=== PATIENT | female | born 1960 | race Caucasian/White ===

== ENCOUNTER 2022-12-03 16:31 | Inpatient (IN) | payer BC, SELFPAY ==
--- NOTE | 2022-12-03 | ECG_ITS ---
Test Reason : sob Blood Pressure : / mmHG Vent. Rate : 075 BPM Atrial Rate : 075 BPM P-R Int : 160 ms QRS Dur : 074 ms QT Int : 402 ms P-R-T Axes : 053 073 049 degrees QTc Int : 448 ms Normal sinus rhythm Normal ECG No previous ECGs available Referred By: Valerie García Electronically Signed By:RADHA FIGUEROA
[2022-12-03 17:06] VITALS: BP 175/87; PULSE 85; RESP 18; TEMP 36.4; O2SAT 99; BMI 23.2
--- NOTE | 2022-12-03 17:09 | PC.NURSE ---
Patient arrived from home with complaints of debilitating anxiety that prevents her from being able to function the way she would like to. Reports at the start of the summer she [place] a fall [place] [employer] and has not been the same since. has seen a neurologist and seizures were ruled out. had an MRI on Sun with no findings other than arthritis. Reports being lonely and does not want to be a burden on her children. Has had a difficult time finding a therapist, and when she did the drive to [place] gave her too much anxiety. has been prescribed meds to help with her anxiety but that they were not right for her so she never took them. 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 Reports tried to go back to work but was too fatigued and had to be driven home. Patient visibly anxious and tearful . Denies HI, when asked about SI patient stating not really, but i have thought a lot about how I do not want to continue to live like this . Changed into hospital attire, and belongings locked in pod locker
--- NOTE | 2022-12-03 17:25 | PC.NURSE ---
Per patients request the following can be updated on her care if they call: daughter sarwat- [phone] Gaetano [phone] Jimmy Sam- [phone] Mom Génesis [phone]
--- NOTE | 2022-12-03 17:48 | ED.PSYCH ---
HPI - Psych General Chief Complaint: Psychiatric Symptoms Stated Complaint: Crisis Time Seen by Provider: 12/03/22 16:56 Source: patient Mode of arrival: ambulatory Limitations: no limitations History of Present Illness HPI Narrative: Patient comes to the emergency room accompanied by a family friend. Patient states that she is feeling extremely anxious and can no longer function at her baseline. Patient states that she has been having severe anxiety, has had panic attacks while shopping. States that due to the severe anxiety, she has been unable to go back to work which she will like to do so. Patient states she has had intrusive suicidal thoughts, denies she would act on them, no homicidal thoughts. Related Data Home Medications Medication Instructions Recorded Confirmed citalopram 10 mg tablet (Celexa) 10 mg PO QPM 12/03/22 12/03/22 loratadine 10 mg tablet (Claritin) 10 mg PO DAILY 12/03/22 12/03/22 losartan 25 mg tablet 25 mg PO DAILY 12/03/22 12/03/22 Allergies Allergy/AdvReac Type Severity Reaction Status Date / Time levetiracetam [From [facility]] AdvReac Intermediate Agitated Verified 12/03/22 17:35 Review of Systems Review of Systems: Constitutional : No Weight loss, No Fever, No Chills, No Night Sweats, No Fatigue, No Malaise ENT/Mouth : No Hearing loss, No Ear Pain, No Nasal Congestion, No Sinus Pain, No Hoarseness, No sore throat, No Rhinorrhea, No Swallowing Difficulty Eyes: No Eye Pain, No Swelling, No Redness, No Foreign Body, No Discharge, No Vision Changes Cardiovascular : No Chest Pain, No SOB, No Dyspnea on Exertion, No Orthopnea, No Edema, No Palpitations Respiratory : No Cough, No Sputum, No Wheezing, No Smoke Exposure, No Dyspnea Gastrointestinal : No Nausea, No Vomiting, No Diarrhea, No Constipation, No abdominal Pain, No Hematochezia, No Melena Genitourinary : no irregular bleeding, No Dysuria, No Urinary Frequency, No Hematuria, No Urinary Incontinence, No Urgency, No Flank Pain, No Urinary Flow Changes, No Hesitancy Musculoskeletal : No joint pain, No Myalgias, No Joint Swelling Skin : No Skin Lesions, No rash Neuro : No Weakness, No Numbness, No Paresthesias, No Loss of Consciousness, No Dizziness, No Headache Psych : Complaining of severe anxiety, ?intrusive suicidal thoughts?, no HI Heme/Lymph: No Bruising, No Bleeding,No Lymphadenopathy Endocrine : No Polyuria, No Polydipsia, No Temperature Intolerance [facility] Past Medical History Medical History (Updated 12/03/22 @ 22:02 by Valerie García MD) Anxiety Social History Social History Alcohol intake: former Smoked in Last 30 Days: No Use of substances other than those prescribed or required for medical reasons: No Advance Directives: No Advance Directives Information Provided: No Guardian: No Physical Exam Vital Signs: Vital Signs: Last Vital Signs Temp 97.5 F 12/03/22 17:06 Pulse 84 12/03/22 18:19 Resp 18 12/03/22 18:19 BP 174/121 H 12/03/22 18:19 Pulse Ox 98 12/03/22 18:19 O2 Del Method Room Air 12/03/22 18:19 BMI result Body Mass Index 23.2 Const: Other: Appearance: Alert. Oriented X3. No acute distress. Eyes: Pupils equal, round and reactive to light. ENT: Pharynx normal. Neck: Normal inspection. Neck supple. No lymph nodes noted. No crepitus CVS: Normal heart rate and rhythm. Pulses normal. Normal S1 and S2 Respiratory: No respiratory distress. Breath sounds normal. No Wheezing. No rales Abdomen: Soft and nontender. No rigidity. No distention. Skin: Skin warm and dry. Normal skin color. Normal skin turgor. Extremities: No lower extremity edema. No Lacerations. No Rash Neuro: Oriented X 3. No motor deficit. No sensory deficit. Moving all extremities. No slurred speech. CN 2 through 12 grossly intact Psych: calm, cooperative, seems anxious Course Course Course Narrative: -all of patient's labs are pending -care team consult pending -physician observation started at 17:50 Medications Administered Generic Name Dose Route Start Last Admin Trade Name Freq PRN Reason Stop Dose Admin Sodium Chloride 1,000 mls @ 999 mls/hr 12/03/22 21:59 12/03/22 22:19 Ns IVCONT 12/03/22 22:59 999 mls/hr .Q1H1M ONE Administration Pt Own (Citalopram [ 10 mg 12/03/22 21:45 12/03/22 21:48 Celexa] 10 Mg Tablet PO 10 mg ) BEDTIME ARCELIA Administration Medical Decision Making Medical Decision Making [facility] Narrative: -patient's sodium 128, patient receiving IV fluids, labs to be repeated at 23:30, sodium and urine osmolality/osmolality pending -sign-out given to Dr. Haynes Differential Diagnosis Differential Diagnoses: The differential diagnosis associated with the presentation includes (Anxiety, depression, UTI, hyponatremia) Admission/Observation Consideration of admission/observation: Escalation of care including admission/observation considered Consult Healthcare Provider Management of the patient was discussed with: Behavioral Health Provider Lab Data [facility] Lab Attestation statement: I reviewed the patient's lab results. 12/03/22 18:08 12/03/22 18:08 Labs: Lab Results 12/03/22 12/03/22 12/03/22 Range/Units 17:57 17:57 18:08 WBC 6.4 (4.8-10.8) X10*3/uL RBC 3.92 L (4.20-5.50) X10*6/uL Hgb 12.2 (12.0-16.0) g/dl Hct 33.8 L (37.0-47.0) % MCV 86.2 (80.0-98.0) fL MCH 31.1 (27.0-33.0) pg MCHC 36.1 H (31.0-35.0) g/dl RDW 11.9 (11.0-16.0) % Plt Count 355 (160-400) X10*3/uL MPV 8.1 L (9.4-12.3) fL Immature Gran % (Auto) 0.3 (0.0-0.4) % Neut % (Auto) 55.6 (45-73) % Lymph % (Auto) 34.4 (20-40) % [place] % (Auto) 8.6 (2-11) % Eos % (Auto) 0.6 (0-4) % Baso % (Auto) 0.5 (0-2) % Lymph # (Auto) 2.2 (1.2-4.9) X10*3/uL [place] # (Auto) 0.6 (0.1-1.2) X10*3/uL Eos # (Auto) 0.0 (0.0-0.4) X10*3/uL Baso # (Auto) 0.0 (0.0-0.2) X10*3/uL Abs Immat Gran (auto) 0.02 (0.00-0.03) X10*3/uL Absolute Neuts (auto) 3.6 (2.0-8.3) x10*3/uL Absolute Nucleated RBC 0.000 (0.0-0.012) X10*3/uL Nucleated RBC % (auto) 0.0 (0.0-0.2) /100WBC Sodium (135-145) mmol/L Potassium (3.3-5.1) mmol/L Chloride (96-108) mmol/L Carbon Dioxide (22-29) mmol/L Anion Gap (12-20) BUN (9-16) mg/dL Creatinine (0.5-1.4) mg/dL Estim Creat Clear Calc Estimated GFR Random Glucose (60-115) mg/dL Calcium (8.4-10.2) mg/dL Total Bilirubin (0.0-1.0) mg/dL Direct Bilirubin (0.0-0.5) mg/dL AST (5-31) U/L ALT (0-31) U/L Alkaline Phosphatase (39-117) U/L Total Protein (6.5-8.0) g/dL Albumin (3.5-5.0) g/dL Urine Color Yellow Urine Appearance Clear Urine pH 5.5 (5.0-9.0) Ur Specific [place] 1.010 (1.005-1.025) Urine Protein Negative (Neg-Trace) mg/dL Urine Glucose (UA) Negative (Negative) mg/dL Urine Ketones Negative (Negative) mg/dL Urine Blood Negative (Negative) Urine Nitrite Negative (Negative) Ur Leukocyte Esterase Negative (Negative) Urine Opiates Screen Not Detected (Not Detect) Urine Fentanyl Screen Not Detected (Not Detect) Ur Barbiturates Screen Not Detected (Not Detect) Ur Phencyclidine Scrn Not Detected (Not Detect) Ur Amphetamines Screen Not Detected (Not Detect) U Benzodiazepines Scrn Not Detected (Not Detect) Urine Cocaine Screen Not Detected (Not Detect) U Marijuana (THC) Screen Not Detected (Not Detect) Ethyl Alcohol mg/dL COVID-19 ([facility]) (Negative) COVID-19 Clin Com 12/03/22 12/03/22 12/03/22 Range/Units 18:08 18:08 18:08 WBC (4.8-10.8) X10*3/uL RBC (4.20-5.50) X10*6/uL Hgb (12.0-16.0) g/dl Hct (37.0-47.0) % MCV (80.0-98.0) fL MCH (27.0-33.0) pg MCHC (31.0-35.0) g/dl RDW (11.0-16.0) % Plt Count (160-400) X10*3/uL MPV (9.4-12.3) fL Immature Gran % (Auto) (0.0-0.4) % Neut % (Auto) (45-73) % Lymph % (Auto) (20-40) % [place] % (Auto) (2-11) % Eos % (Auto) (0-4) % Baso % (Auto) (0-2) % Lymph # (Auto) (1.2-4.9) X10*3/uL [place] # (Auto) (0.1-1.2) X10*3/uL Eos # (Auto) (0.0-0.4) X10*3/uL Baso # (Auto) (0.0-0.2) X10*3/uL Abs Immat Gran (auto) (0.00-0.03) X10*3/uL Absolute Neuts (auto) (2.0-8.3) x10*3/uL Absolute Nucleated RBC (0.0-0.012) X10*3/uL Nucleated RBC % (auto) (0.0-0.2) /100WBC Sodium 128 L (135-145) mmol/L Potassium 3.6 (3.3-5.1) mmol/L Chloride 95 L (96-108) mmol/L Carbon Dioxide 25 (22-29) mmol/L Anion Gap 12 (12-20) BUN 11 (9-16) mg/dL Creatinine 0.71 (0.5-1.4) mg/dL Estim Creat Clear Calc 71.8 Estimated GFR > 60 Random Glucose 94 (60-115) mg/dL Calcium 9.9 (8.4-10.2) mg/dL Total Bilirubin 0.6 (0.0-1.0) mg/dL Direct Bilirubin 0.2 (0.0-0.5) mg/dL AST 13 (5-31) U/L ALT 15 (0-31) U/L Alkaline Phosphatase 74 (39-117) U/L Total Protein 7.2 (6.5-8.0) g/dL Albumin 4.7 (3.5-5.0) g/dL Urine Color Urine Appearance Urine pH (5.0-9.0) Ur Specific [place] (1.005-1.025) Urine Protein (Neg-Trace) mg/dL Urine Glucose (UA) (Negative) mg/dL Urine Ketones (Negative) mg/dL Urine Blood (Negative) Urine Nitrite (Negative) Ur Leukocyte Esterase (Negative) Urine Opiates Screen (Not Detect) Urine Fentanyl Screen (Not Detect) Ur Barbiturates Screen (Not Detect) Ur Phencyclidine Scrn (Not Detect) Ur Amphetamines Screen (Not Detect) U Benzodiazepines Scrn (Not Detect) Urine Cocaine Screen (Not Detect) U Marijuana (THC) Screen (Not Detect) Ethyl Alcohol < 10 mg/dL COVID-19 ([facility]) Negative (Negative) COVID-19 Clin Com See Note Discharge Plan Discharge Clinical Impression: Acute anxiety, Acute hyponatremia Patient Disposition: Still a Patient Prescriptions: No Action losartan 25 mg tablet 25 mg PO DAILY citalopram [Celexa] 10 mg Tablet 10 mg PO QPM loratadine [Claritin] 10 mg Tablet 10 mg PO DAILY Interventions: [place]-Suicide Risk Severity Scale Last Done: 12/03/22 17:15
[2022-12-03 18:13] LABS: MANUAL DIFF FLAG NO
[2022-12-03 18:19] VITALS: BP 174/121; PULSE 84; RESP 18; O2SAT 98
[2022-12-03 18:20] LABS: Amphetamine Screen Urine Not Detected (Not Detect); Appearance Urine Clear; Barbiturates, Urine Not Detected (Not Detect); Benzodiazepines Screen Urine Not Detected (Not Detect); Cannabinoid Screen Urine Not Detected (Not Detect); Cocaine Screen Urine Not Detected (Not Detect); Color Urine Yellow; Fentanyl, urine Not Detected (Not Detect); Glucose Urine UA Negative (Negative); Leukocyte Esterase Urine Negative (Negative); Nitrite Urine Negative (Negative); Opiate Screen Urine Not Detected (Not Detect); PH 5.5 (5.0-9.0); Phencyclidine Screen Urine Not Detected (Not Detect); Urine Blood Negative (Negative); Urine Ketones Negative (Negative); Urine Protein Negative (Neg-Trace)
[2022-12-03 18:21] LABS: Basophils Percent Auto 0.5 % (0-2); Eosinophils Percent Auto 0.6 % (0-4); Hematocrit 33.8 % (37.0-47.0); Hemoglobin 12.2 g/dl (12.0-16.0); Imm Gran Abs Auto 0.02 X10*3/uL (0.00-0.03); Imm Gran Pct Auto 0.3 % (0.0-0.4); Lymphocytes Absolute Auto 2.2 X10*3/uL (1.2-4.9); Lymphocytes Percent Auto 34.4 % (20-40); Mean Corpuscular HGB Conc 36.1 g/dl (31.0-35.0); Mean Corpuscular Hemoglobin 31.1 pg (27.0-33.0); Mean Corpuscular Volume 86.2 fL (80.0-98.0); Mean Platelet Volume 8.1 fL (9.4-12.3); Monocytes Absolute Auto 0.6 X10*3/uL (0.1-1.2); Monocytes Percent Auto 8.6 % (2-11); Neutrophils Absolute Auto 3.6 x10*3/uL (2.0-8.3); Neutrophils Percent Auto 55.6 % (45-73); Platelet Count 355 X10*3/uL (160-400); Red Blood Count 3.92 X10*6/uL (4.20-5.50); Red Cell Distribution Width 11.9 % (11.0-16.0); White Blood Count 6.4 X10*3/uL (4.8-10.8)
[2022-12-03 18:28] LABS: IDNOW Serial# 9DB6401D
[2022-12-03 18:29] LABS: COVID-19 Test Negative (Negative)
[2022-12-03 18:33] LABS: Alanine Aminotransferase 15 U/L (0-31); Albumin Level 4.7 g/dL (3.5-5.0); Alkaline Phosphatase 74 U/L (39-117); Anion Gap 12 (12-20); Aspartate Amino Transferase 13 U/L (5-31); Bilirubin Direct 0.2 mg/dL (0.0-0.5); Bilirubin Total 0.6 mg/dL (0.0-1.0); Blood Urea Nitrogen 11 mg/dL (9-16); Calcium 9.9 mg/dL (8.4-10.2); Carbon Dioxide 25 mmol/L (22-29); Chloride 95 mmol/L (96-108); Creatinine Clr Calc Pharmacy 71.8; Estimated Glomerular Filt Rate > 60; Ethanol < 10 mg/dL; Glucose Random 94 mg/dL (60-115); Potassium 3.6 mmol/L (3.3-5.1); Sodium 128 mmol/L (135-145); Total Protein 7.2 g/dL (6.5-8.0)
--- NOTE | 2022-12-03 21:01 | PHA.MEDREC ---
Pharmacy Consult ? Medication Reconciliation Pharmacy has reviewed the medication reconciliation completed by daniel. there are no remarkable issue for provider's attention. Patient confirm that she does not take the clonazepam.
[2022-12-03] MEDS: 0.9 % Sodium Chloride 1,000 ML 999 ML IVCONT (22:19)
--- NOTE | 2022-12-03 22:22 | MHC.EDTECH ---
all belongings have been moved to the laundry closet.
[2022-12-03 23:18] LABS: Anion Gap 11 (12-20); Blood Urea Nitrogen 10 mg/dL (9-16); Calcium 8.7 mg/dL (8.4-10.2); Carbon Dioxide 25 mmol/L (22-29); Chloride 100 mmol/L (96-108); Creatinine Clr Calc Pharmacy 78.5; Estimated Glomerular Filt Rate > 60; Glucose Random 93 mg/dL (60-115); Potassium 3.7 mmol/L (3.3-5.1); Sodium 132 mmol/L (135-145)
--- NOTE | 2022-12-03 23:31 | PC.NURSE ---
Na 128, ordered Sodium chloride 999 ml/administered as ordered, follow up NA 132, IV discontinued per provider's approval, med rec completed/patient compliant with her medication, disposition per care team is voluntary inpatient bed search, behavior non concerning, VSS, will continue to monitor.
[2022-12-03 23:39] VITALS: BP 133/67; PULSE 69; RESP 17; TEMP 36.6; O2SAT 99
[2022-12-04 00:25] LABS: Osmolality Urine 112 mosm/kg (373-1093)
--- NOTE | 2022-12-04 07:34 | PC.NURSE ---
Report received from Jayjay ADAMSON and care transferred at at this time. Pt to [facility] from home with complaints of debilitating anxiety. Pt states that she had a fall over the summer and has not felt the same since, full medical workup completed with no significant findings per patient. Pt found to be hyponatremic, IVMF infusion completed. Pt endorsing improvement in overall symptoms. Currently patient is up walking around milieu, appears in NAD, calm & cooperative. Plan for IP placement, care team evaluation complete. PT pre-accepted to [facility]. Plan for meds, bed placement. WCTA
[2022-12-04] MEDS: Loratadine 10 MG TABLET PO (07:44)
[2022-12-04] MEDS: Losartan Potassium 25 MG TABLET PO (07:44)
[2022-12-04 08:06] VITALS: BP 166/66; PULSE 83; RESP 16; TEMP 36.6; O2SAT 98
--- NOTE | 2022-12-04 10:48 | PC.NURSE ---
Nurse to nurse report given to RN on [facility].
--- NOTE | 2022-12-04 12:37 | P.HPPS_ITS ---
HPI Date of Service: 12/04/22 Chief Complaint: Crisis Sources of Information: patient interviewed, chart reviewed and crisis/core team assessment reviewed HPI Subjective Notes: Conditional Voluntary Narrative: Patient is a 62 year old female who self presented to [facility] ER secondary to c/o increased anxiety that has prevented her from being able to function daily. Per crisis report, pt is fearful something will happen such as crashing her car; she reports racing thoughts, panic attacks, trouble concentrating, lack of sleep and lack of appetite. Her symptoms began in August 2022 after falling in the grocery store. She just starting taking Citalopram 10mg PO Bedtime on Friday11/30/2022. During admission assessment, patient presents as calm, cooperative and friendly. Patient reports she has always been an independent woman but then I fell at the grocery store and I started worrying about who's going to take care of me . Patient reports she identifies herself as a worrier and know I have to be nicer to myself . Patient does not want to be placed on any benzodiazepines because she doesn't want to take anything addicting . Patient reports she would like a referral to a therapist and outpatient prescriber. T/W discussed the benefits of attending PHP; pt reports she will consider attending PHP but is worried about transportation. Pt denies any substance use. Pt denies SI/HI/VH/AH. Past Psychiatric History: None. Medical Evaluation Reviewed: Yes [facility] Medical History (Updated 12/04/22 @ 15:00 by Barbara Bee NP) Anxiety Family History: Aunt- depression. Social History: Lives alone. 2 children. Not working d/t anxiety. Substance History: Denies Trauma History: Denies Diagnostics Vital Signs (24Hr): Vital Signs - 24 hr 12/03/22 17:06 12/03/22 18:19 12/03/22 23:39 Temperature 97.5 F 97.8 F Pulse Rate 85 84 69 Respiratory Rate 18 18 17 Blood Pressure 175/87 H 174/121 H 133/67 Pulse Oximetry 99 98 99 Oxygen Delivery Method Room Air Room Air Room Air 12/04/22 08:06 Temperature 97.9 F Pulse Rate 83 Respiratory Rate 16 Blood Pressure 166/66 H Pulse Oximetry 98 Oxygen Delivery Method Room Air BMI result Body Mass Index 23.2 Labs 12/03/22 18:08 12/03/22 23:01 Labs: Laboratory Results - last 48 hr 12/03/22 12/03/22 12/03/22 17:57 17:57 18:08 WBC 6.4 RBC 3.92 L Hgb 12.2 Hct 33.8 L MCV 86.2 MCH 31.1 MCHC 36.1 H RDW 11.9 Plt Count 355 MPV 8.1 L Immature Gran % (Auto) 0.3 Neut % (Auto) 55.6 Lymph % (Auto) 34.4 [place] % (Auto) 8.6 Eos % (Auto) 0.6 Baso % (Auto) 0.5 Lymph # (Auto) 2.2 [place] # (Auto) 0.6 Eos # (Auto) 0.0 Baso # (Auto) 0.0 Abs Immat Gran (auto) 0.02 Absolute Neuts (auto) 3.6 Absolute Nucleated RBC 0.000 Nucleated RBC % (auto) 0.0 Sodium Potassium Chloride Carbon Dioxide Anion Gap BUN Creatinine Estim Creat Clear Calc Estimated GFR Random Glucose Calcium Total Bilirubin Direct Bilirubin AST ALT Alkaline Phosphatase Total Protein Albumin TSH Urine Color Yellow Urine Appearance Clear Urine pH 5.5 Ur Specific [place] 1.010 Urine Protein Negative Urine Glucose (UA) Negative Urine Ketones Negative Urine Blood Negative Urine Nitrite Negative Ur Leukocyte Esterase Negative Urine Osmolality Ur Random Sodium Urine Opiates Screen Not Detected Urine Fentanyl Screen Not Detected Ur Barbiturates Screen Not Detected Ur Phencyclidine Scrn Not Detected Ur Amphetamines Screen Not Detected U Benzodiazepines Scrn Not Detected Urine Cocaine Screen Not Detected U Marijuana (THC) Screen Not Detected Ethyl Alcohol COVID-19 ([facility]) COVID-19 Clin Com 12/03/22 12/03/22 12/03/22 18:08 18:08 18:08 WBC RBC Hgb Hct MCV MCH MCHC RDW Plt Count MPV Immature Gran % (Auto) Neut % (Auto) Lymph % (Auto) [place] % (Auto) Eos % (Auto) Baso % (Auto) Lymph # (Auto) [place] # (Auto) Eos # (Auto) Baso # (Auto) Abs Immat Gran (auto) Absolute Neuts (auto) Absolute Nucleated RBC Nucleated RBC % (auto) Sodium 128 L Potassium 3.6 Chloride 95 L Carbon Dioxide 25 Anion Gap 12 BUN 11 Creatinine 0.71 Estim Creat Clear Calc 71.8 Estimated GFR > 60 Random Glucose 94 Calcium 9.9 Total Bilirubin 0.6 Direct Bilirubin 0.2 AST 13 ALT 15 Alkaline Phosphatase 74 Total Protein 7.2 Albumin 4.7 TSH Urine Color Urine Appearance Urine pH Ur Specific [place] Urine Protein Urine Glucose (UA) Urine Ketones Urine Blood Urine Nitrite Ur Leukocyte Esterase Urine Osmolality Ur Random Sodium Urine Opiates Screen Urine Fentanyl Screen Ur Barbiturates Screen Ur Phencyclidine Scrn Ur Amphetamines Screen U Benzodiazepines Scrn Urine Cocaine Screen U Marijuana (THC) Screen Ethyl Alcohol < 10 COVID-19 ([facility]) Negative COVID-19 Clin Com See Note 12/03/22 12/03/22 12/03/22 23:01 23:49 23:49 WBC RBC Hgb Hct MCV MCH MCHC RDW Plt Count MPV Immature Gran % (Auto) Neut % (Auto) Lymph % (Auto) [place] % (Auto) Eos % (Auto) Baso % (Auto) Lymph # (Auto) [place] # (Auto) Eos # (Auto) Baso # (Auto) Abs Immat Gran (auto) Absolute Neuts (auto) Absolute Nucleated RBC Nucleated RBC % (auto) Sodium 132 L Potassium 3.7 Chloride 100 Carbon Dioxide 25 Anion Gap 11 L BUN 10 Creatinine 0.65 Estim Creat Clear Calc 78.5 Estimated GFR > 60 Random Glucose 93 Calcium 8.7 D Total Bilirubin Direct Bilirubin AST ALT Alkaline Phosphatase Total Protein Albumin TSH Urine Color Urine Appearance Urine pH Ur Specific [place] Urine Protein Urine Glucose (UA) Urine Ketones Urine Blood Urine Nitrite Ur Leukocyte Esterase Urine Osmolality 112 L Ur Random Sodium 39.0 Urine Opiates Screen Urine Fentanyl Screen Ur Barbiturates Screen Ur Phencyclidine Scrn Ur Amphetamines Screen U Benzodiazepines Scrn Urine Cocaine Screen U Marijuana (THC) Screen Ethyl Alcohol COVID-19 ([facility]) COVID-19 Clin Com 12/04/22 11:35 WBC RBC Hgb Hct MCV MCH MCHC RDW Plt Count MPV Immature Gran % (Auto) Neut % (Auto) Lymph % (Auto) [place] % (Auto) Eos % (Auto) Baso % (Auto) Lymph # (Auto) [place] # (Auto) Eos # (Auto) Baso # (Auto) Abs Immat Gran (auto) Absolute Neuts (auto) Absolute Nucleated RBC Nucleated RBC % (auto) Sodium Potassium Chloride Carbon Dioxide Anion Gap BUN Creatinine Estim Creat Clear Calc Estimated GFR Random Glucose Calcium Total Bilirubin Direct Bilirubin AST ALT Alkaline Phosphatase Total Protein Albumin TSH 1.10 Urine Color Urine Appearance Urine pH Ur Specific [place] Urine Protein Urine Glucose (UA) Urine Ketones Urine Blood Urine Nitrite Ur Leukocyte Esterase Urine Osmolality Ur Random Sodium Urine Opiates Screen Urine Fentanyl Screen Ur Barbiturates Screen Ur Phencyclidine Scrn Ur Amphetamines Screen U Benzodiazepines Scrn Urine Cocaine Screen U Marijuana (THC) Screen Ethyl Alcohol COVID-19 ([facility]) COVID-19 Clin Com Meds/Allergies Meds Home Medications Medication Instructions Recorded Confirmed Type citalopram 10 mg tablet (Celexa) 10 mg PO QPM 12/03/22 12/03/22 History loratadine 10 mg tablet (Claritin) 10 mg PO DAILY 12/03/22 12/03/22 History losartan 25 mg tablet 25 mg PO DAILY 12/03/22 12/03/22 History Allergies Allergies Allergy/AdvReac Type Severity Reaction Status Date / Time levetiracetam [From [facility]] AdvReac Intermediate Agitated Verified 12/03/22 17:35 Mental Status Exam Mental Status Exam Narrative: Pt is alert and oriented; behavior is cooperative, friendly and calm; dressed in casual attire; mood is described as anxious ; eye contact appropriate; Speech is normal rate, volume and prosody and not pressured; no psychomotor agitation/retardation present; thought process is organized and goal directed; Thought content is on tx; otherwise pertinent to relevant topics and without any delusional content, paranoid ideations or grandiosity; denies SI/HI. There is no evidence of perceptual disturbance. Patients insight and judgment are fair. Assessment & Plan Assessment & Plan (1) Panic disorder: Status: Acute Code(s): F41.0 - Panic disorder [episodic paroxysmal anxiety] (2) PTSD (post-traumatic stress disorder): Status: Acute Code(s): F43.10 - Post-traumatic stress disorder, unspecified Plan Patient is a 62 year old female who self presented to [facility] ER secondary to c/o increased anxiety that has prevented her from being able to function daily. Plan: CV 15 Minute safety checks Referral to therapist Referral to prescriber Referral to PHP Start: Clonidine 0.1mg PO BID PRN anxiety Patient educated on: diagnosis, medication risk/benefits and therapeutic strategies Informed Consent: understands Reason for continued inpatient stay Substantial Risk for: med/psych decompensation Statement Statement: I have reviewed the history and physical and performed a pertinent examination on my patient. No changes have occurred unless specified. If the History and Physical was not performed prior to admission, the Hospitalist's service will be consulted for completing the admission physical. Time Spent With Patient Time: Total time managing care of this patient today _60___ minutes.
--- NOTE | 2022-12-04 13:15 | PC.NURSE ---
Pt enroute to [facility] with security and RN, pt belonging sent with patient.
[2022-12-04 13:45] VITALS: BP 143/75; PULSE 101; RESP 20; TEMP 36.1; O2SAT 99
--- NOTE | 2022-12-04 17:14 | PC.NURSE ---
Patient is a 62 y/o [place] island[place] speaking female admitted at 1315 from the [facility] ED on a CV. Pt has been having increased anxiety, panic attacks and trouble concentrating since August when she Blacked out and passed out in the grocery store. Pt is no longer able to drive due to fear that she will hit and injure someone during a panic attack. Pt was A&Ox4 when she arrived on the floor. Pt mood is anxious and affect is congruent. She denies SI/HI /AH/VH. Pt reports racing thoughts at night and sleep is limited to naps. . Pt denies having thoughts of harming self or others. Pt reports a good appetite. Pt is seeking help with anxiety reporting, it is debilitating now and she wants to return to work. 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 Pts tox screen was negative. Medically the pt denies any acute issues except HTN since her episode this August. Pt recently started on Celexa and is medication compliant. Pt placed on 15 minute checks.
--- NOTE | 2022-12-04 17:32 | PC.ADMIT ---
Patient is a 62 y/o citizen of [place] speaking female admitted at 1315 from the [facility] ED on a CV. Pt has been having increased anxiety, panic attacks and trouble concentrating since August when she Blacked out and passed out in the grocery store. Pt is no longer able to drive due to fear that she will hit and injure someone during a panic attack. Pt was A&Ox4 when she arrived on the floor. Pt mood is anxious and affect is congruent. She denies SI/HI /AH/VH. Pt reports racing thoughts at night and sleep is limited to naps. . Pt denies having thoughts of harming self or others. Pt reports a good appetite. Pt is seeking help with anxiety reporting, it is debilitating now and she wants to return to work. 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 Pts tox screen was negative. Medically the pt denies any acute issues except HTN since her episode this August. Pt recently started on Celexa and is medication compliant. Pt placed on 15 minute checks.
[2022-12-04] MEDS: hydrOXYzine HCL 25 MG TABLET PO (20:25)
[2022-12-05] MEDS: Acetaminophen 325 MG TABLET 650 MG PO (05:55)
[2022-12-05 06:09] VITALS: BP 106/57; PULSE 80
[2022-12-05] MEDS: Magnesium Hydrox/Alum Hydrox 30 ML ORAL.SUSP PO ×2 (06:16→17:58)
[2022-12-05 07:00] VITALS: BMI 23.2
[2022-12-05 08:00] VITALS: BP 109/64; PULSE 87; RESP 18; TEMP 36.7; O2SAT 97
[2022-12-05] MEDS: Loratadine 10 MG TABLET PO (08:57)
[2022-12-05] MEDS: Losartan Potassium 25 MG TABLET PO (08:57)
[2022-12-05 09:48] LABS: Alanine Aminotransferase 14 U/L (0-31); Albumin Level 4.5 g/dL (3.5-5.0); Alkaline Phosphatase 72 U/L (39-117); Anion Gap 14 (12-20); Aspartate Amino Transferase 14 U/L (5-31); Bilirubin Total 0.7 mg/dL (0.0-1.0); Blood Urea Nitrogen 10 mg/dL (9-16); Calcium 9.8 mg/dL (8.4-10.2); Carbon Dioxide 22 mmol/L (22-29); Chloride 94 mmol/L (96-108); Cholesterol 181 mg/dL (<200); Estimated Glomerular Filt Rate > 60; Glucose Fasting 129 mg/dL (60-99); HDL Cholesterol 62 mg/dL (>40); LDL Cholesterol Calculated 104 mg/dL (<100); Potassium 4.1 mmol/L (3.3-5.1); Sodium 126 mmol/L (135-145); Total Protein 7.2 g/dL (6.5-8.0); Triglycerides 78 mg/dL (<150)
--- NOTE | 2022-12-05 09:57 | HO.PSYCHPN ---
Subjective Subjective Date of Service: 12/05/22 Reason For Visit: Crisis Subjective Notes: Conditional Voluntary Interim History: Reviewed in team and Dr. Borges. Patient reports feeling a little improved from first coming in . Patient reports she is trying to attend groups but becomes anxious d/t the amount of people. She reports missing the comforts of home and am hoping to discharge soon . Patient stated, she will consider attending PHP in the future but does not want to at this time. Pt was encouraged to try clonidine for her anxiety; pt reports feeling nervous about taking medications; risks/benefits discussed. Medication Compliance: Yes Side effects from medications: No Attending Groups: Yes Review of Systems Constitutional: Reports as per HPI Eyes: Reports as per HPI Reports as per HPI Cardiovascular: Reports as per HPI Respiratory: Reports as per HPI Gastrointestinal: Reports as per HPI Genitourinary: Reports as per HPI Musculoskeletal: Reports as per HPI Skin/Breast: Reports as per HPI Reports as per HPI Psychiatric: Reports as per HPI Endocrine: Reports as per HPI Hematologic/Lymphatic: Reports as per HPI Allergic/Immunologic: Reports as per HPI Mental Status Exam Mental Status Exam Narrative: Pt is alert and oriented; behavior is cooperative, friendly and calm; dressed in casual attire; mood is described as good ; eye contact appropriate; Speech is normal rate, volume and prosody and not pressured; no psychomotor agitation/retardation present; thought process is organized and goal directed; Thought content is on tx; otherwise pertinent to relevant topics and without any delusional content, paranoid ideations or grandiosity; denies SI/HI. There is no evidence of perceptual disturbance. Patients insight and judgment are fair. Diagnostics Vital Signs (24Hr): Vital Signs - 24 hr 12/04/22 13:45 12/05/22 06:09 12/05/22 08:00 Temperature 97.0 F 98.1 F Pulse Rate 101 H 80 87 Respiratory Rate 20 18 Blood Pressure 143/75 H 106/57 L 109/64 Pulse Oximetry 99 97 Oxygen Delivery Method Room Air Room Air BMI result Body Mass Index 23.2 Labs 12/03/22 18:08 12/05/22 08:15 Labs: Laboratory Results - last 48 hr 12/03/22 12/03/22 12/03/22 17:57 17:57 18:08 WBC 6.4 RBC 3.92 L Hgb 12.2 Hct 33.8 L MCV 86.2 MCH 31.1 MCHC 36.1 H RDW 11.9 Plt Count 355 MPV 8.1 L Immature Gran % (Auto) 0.3 Neut % (Auto) 55.6 Lymph % (Auto) 34.4 [place] % (Auto) 8.6 Eos % (Auto) 0.6 Baso % (Auto) 0.5 Lymph # (Auto) 2.2 [place] # (Auto) 0.6 Eos # (Auto) 0.0 Baso # (Auto) 0.0 Abs Immat Gran (auto) 0.02 Absolute Neuts (auto) 3.6 Absolute Nucleated RBC 0.000 Nucleated RBC % (auto) 0.0 Sodium Potassium Chloride Carbon Dioxide Anion Gap BUN Creatinine Estim Creat Clear Calc Estimated GFR Random Glucose Fasting Glucose Calcium Total Bilirubin Direct Bilirubin AST ALT Alkaline Phosphatase Total Protein Albumin Triglycerides Cholesterol LDL Cholesterol, Calc HDL Cholesterol TSH Urine Color Yellow Urine Appearance Clear Urine pH 5.5 Ur Specific [place] 1.010 Urine Protein Negative Urine Glucose (UA) Negative Urine Ketones Negative Urine Blood Negative Urine Nitrite Negative Ur Leukocyte Esterase Negative Urine Osmolality Ur Random Sodium Urine Opiates Screen Not Detected Urine Fentanyl Screen Not Detected Ur Barbiturates Screen Not Detected Ur Phencyclidine Scrn Not Detected Ur Amphetamines Screen Not Detected U Benzodiazepines Scrn Not Detected Urine Cocaine Screen Not Detected U Marijuana (THC) Screen Not Detected Ethyl Alcohol COVID-19 ([facility]) COVID-19 Clin Com 12/03/22 12/03/22 12/03/22 18:08 18:08 18:08 WBC RBC Hgb Hct MCV MCH MCHC RDW Plt Count MPV Immature Gran % (Auto) Neut % (Auto) Lymph % (Auto) [place] % (Auto) Eos % (Auto) Baso % (Auto) Lymph # (Auto) [place] # (Auto) Eos # (Auto) Baso # (Auto) Abs Immat Gran (auto) Absolute Neuts (auto) Absolute Nucleated RBC Nucleated RBC % (auto) Sodium 128 L Potassium 3.6 Chloride 95 L Carbon Dioxide 25 Anion Gap 12 BUN 11 Creatinine 0.71 Estim Creat Clear Calc 71.8 Estimated GFR > 60 Random Glucose 94 Fasting Glucose Calcium 9.9 Total Bilirubin 0.6 Direct Bilirubin 0.2 AST 13 ALT 15 Alkaline Phosphatase 74 Total Protein 7.2 Albumin 4.7 Triglycerides Cholesterol LDL Cholesterol, Calc HDL Cholesterol TSH Urine Color Urine Appearance Urine pH Ur Specific [place] Urine Protein Urine Glucose (UA) Urine Ketones Urine Blood Urine Nitrite Ur Leukocyte Esterase Urine Osmolality Ur Random Sodium Urine Opiates Screen Urine Fentanyl Screen Ur Barbiturates Screen Ur Phencyclidine Scrn Ur Amphetamines Screen U Benzodiazepines Scrn Urine Cocaine Screen U Marijuana (THC) Screen Ethyl Alcohol < 10 COVID-19 ([facility]) Negative COVID-19 Clin Com See Note 12/03/22 12/03/22 12/03/22 23:01 23:49 23:49 WBC RBC Hgb Hct MCV MCH MCHC RDW Plt Count MPV Immature Gran % (Auto) Neut % (Auto) Lymph % (Auto) [place] % (Auto) Eos % (Auto) Baso % (Auto) Lymph # (Auto) [place] # (Auto) Eos # (Auto) Baso # (Auto) Abs Immat Gran (auto) Absolute Neuts (auto) Absolute Nucleated RBC Nucleated RBC % (auto) Sodium 132 L Potassium 3.7 Chloride 100 Carbon Dioxide 25 Anion Gap 11 L BUN 10 Creatinine 0.65 Estim Creat Clear Calc 78.5 Estimated GFR > 60 Random Glucose 93 Fasting Glucose Calcium 8.7 D Total Bilirubin Direct Bilirubin AST ALT Alkaline Phosphatase Total Protein Albumin Triglycerides Cholesterol LDL Cholesterol, Calc HDL Cholesterol TSH Urine Color Urine Appearance Urine pH Ur Specific [place] Urine Protein Urine Glucose (UA) Urine Ketones Urine Blood Urine Nitrite Ur Leukocyte Esterase Urine Osmolality 112 L Ur Random Sodium 39.0 Urine Opiates Screen Urine Fentanyl Screen Ur Barbiturates Screen Ur Phencyclidine Scrn Ur Amphetamines Screen U Benzodiazepines Scrn Urine Cocaine Screen U Marijuana (THC) Screen Ethyl Alcohol COVID-19 ([facility]) COVID-19 Clin Com 12/04/22 12/05/22 11:35 08:15 WBC RBC Hgb Hct MCV MCH MCHC RDW Plt Count MPV Immature Gran % (Auto) Neut % (Auto) Lymph % (Auto) [place] % (Auto) Eos % (Auto) Baso % (Auto) Lymph # (Auto) [place] # (Auto) Eos # (Auto) Baso # (Auto) Abs Immat Gran (auto) Absolute Neuts (auto) Absolute Nucleated RBC Nucleated RBC % (auto) Sodium 126 L Potassium 4.1 Chloride 94 L Carbon Dioxide 22 Anion Gap 14 BUN 10 Creatinine 0.75 Estim Creat Clear Calc 68.0 Estimated GFR > 60 Random Glucose Fasting Glucose 129 H Calcium 9.8 D Total Bilirubin 0.7 Direct Bilirubin AST 14 ALT 14 Alkaline Phosphatase 72 Total Protein 7.2 Albumin 4.5 Triglycerides 78 Cholesterol 181 LDL Cholesterol, Calc 104 H HDL Cholesterol 62 TSH 1.10 Urine Color Urine Appearance Urine pH Ur Specific [place] Urine Protein Urine Glucose (UA) Urine Ketones Urine Blood Urine Nitrite Ur Leukocyte Esterase Urine Osmolality Ur Random Sodium Urine Opiates Screen Urine Fentanyl Screen Ur Barbiturates Screen Ur Phencyclidine Scrn Ur Amphetamines Screen U Benzodiazepines Scrn Urine Cocaine Screen U Marijuana (THC) Screen Ethyl Alcohol COVID-19 ([facility]) COVID-19 Clin Com Medications Medications Current Medications Acetaminophen (Acetaminophen 325 Mg Tablet) 650 mg PO Q6H PRN PRN Reason: Headache/Pain Mild Scale (1-3) Last Admin: 12/05/22 05:55 Dose: 650 mg Al Hydroxide/Mg Hydroxide (Magnesium Hydrox/Alum Hydrox 30 Ml Oral.Susp) 30 ml PO Q6H PRN PRN Reason: Heartburn/Nausea Last Admin: 12/05/22 06:16 Dose: 30 ml Clonidine HCl (Clonidine Hcl 0.1 Mg Tablet) 0.1 mg PO BID PRN; Protocol PRN Reason: Anxiety Hydroxyzine HCl (Hydroxyzine Hcl 25 Mg Tablet) 25 mg PO Q6H PRN PRN Reason: Anxiety Last Admin: 12/04/22 20:25 Dose: 25 mg Loratadine (Loratadine 10 Mg Tablet) 10 mg PO DAILY [facility] Last Admin: 12/05/22 08:57 Dose: 10 mg Losartan Potassium (Losartan Potassium 25 Mg Tablet) 25 mg PO DAILY [facility]; Protocol Last Admin: 12/05/22 08:57 Dose: 25 mg Magnesium Hydroxide (Milk Of Magnesia 30 Ml Oral.Susp) 30 ml PO DAILY PRN PRN Reason: Constipation Pt Own (Citalopram [ Celexa] 10 Mg Tablet ) 10 mg PO BEDTIME [facility] Last Admin: 12/04/22 20:16 Dose: 10 mg Trazodone HCl (Trazodone Hcl 50 Mg Tablet) 50 mg PO BEDTIME MRX1 PRN PRN Reason: Insomnia Allergies Allergies Allergy/AdvReac Type Severity Reaction Status Date / Time levetiracetam [From [facility]] AdvReac Intermediate Agitated Verified 12/03/22 17:35 Assessment & Plan Assessment & Plan (1) Panic disorder: Status: Acute Code(s): F41.0 - Panic disorder [episodic paroxysmal anxiety] (2) PTSD (post-traumatic stress disorder): Status: Acute Code(s): F43.10 - Post-traumatic stress disorder, unspecified Plan Patient is a 62 year old female who self presented to [facility] ER secondary to c/o increased anxiety that has prevented her from being able to function daily. Plan: CV 15 Minute safety checks Referral to therapist Referral to prescriber Referral to PHP Clonidine 0.1mg PO BID PRN anxiety 12/05: Patient reports feeling a little improved from first coming in . Patient reports she is trying to attend groups but becomes anxious d/t the amount of people. She reports missing the comforts of home and am hoping to discharge soon . Patient stated, she will consider attending PHP in the future but does not want to at this time. Pt was encouraged to try clonidine for her anxiety; pt reports feeling nervous about taking medications; risks/benefits discussed. Patient educated on: diagnosis, medication risk/benefits and therapeutic strategies Informed Consent: understands Reason for continued inpatient stay Substantial Risk for: med/psych decompensation Time Spent With Patient Time: Total time managing care of this patient today _30___ minutes.
[2022-12-05 10:35] VITALS: BP 148/65; PULSE 88; RESP 18; O2SAT 96
[2022-12-05] MEDS: cloNIDine HCL 0.1 MG TABLET PO ×2 (10:40→22:01)
[2022-12-05 20:40] VITALS: BP 131/63; PULSE 74; RESP 18; TEMP 36.1; O2SAT 98
[2022-12-06 07:29] VITALS: BP 125/60; PULSE 73; RESP 16; TEMP 36.6; O2SAT 99
--- NOTE | 2022-12-06 07:30 | PC.NURSE ---
Pt woke at 0720 c/o lightheadedness and dizziness. VS taken and were 125/60, 73, 99%. Pt is equating this with clonidine last night. Will continue to monitor.
[2022-12-06 08:35] VITALS: BP 123/73; PULSE 71
[2022-12-06 08:37] VITALS: BP 126/77; PULSE 77
[2022-12-06 08:40] VITALS: BP 142/71; PULSE 80
--- NOTE | 2022-12-06 08:45 | PC.NURSE ---
Pt c/o dizziness / lighteaheded feeling. Ortho VS taken, WNL. Provider Barbara notified. Pt ambulating with unsteady gait, assisted by this RN. AM Losartan held, provider aware. No new orders at this time. Pt resting quietly in chair in [place].
[2022-12-06] MEDS: Loratadine 10 MG TABLET PO (08:52)
--- NOTE | 2022-12-06 09:37 | P.PNPSI_ITS ---
Subjective Subjective Date of Service: 12/06/22 Reason For Visit: Crisis Subjective Notes: Conditional Voluntary Interim History: Reviewed in team and Dr. Borges. Patient reports feeling better today. Patient stated, I'm not depressed, I'm just anxious. I slept well last night . Patient denies SI/HI/VH/AH. Patient reports she is not sure if the clonidine is helping with her anxiety. She is hoping for discharge on Friday. Medication Compliance: Yes Attending Groups: Yes Review of Systems Review of Systems Constitutional : No Weight loss, No Fever, No Chills, No Night Sweats, No Fatigue, No Malaise ENT/Mouth : No Hearing loss, No Ear Pain, No Nasal Congestion, No Sinus Pain, No Hoarseness, No sore throat, No Rhinorrhea, No Swallowing Difficulty Eyes: No Eye Pain, No Swelling, No Redness, No Foreign Body, No Discharge, No Vision Changes Cardiovascular : No Chest Pain, No SOB, No Dyspnea on Exertion, No Orthopnea, No Edema, No Palpitations Respiratory : No Cough, No Sputum, No Wheezing, No Smoke Exposure, No Dyspnea Gastrointestinal : No Nausea, No Vomiting, No Diarrhea, No Constipation, No abdominal Pain, No Hematochezia, No Melena Genitourinary : no irregular bleeding, No Dysuria, No Urinary Frequency, No Hematuria, No Urinary Incontinence, No Urgency, No Flank Pain, No Urinary Flow Changes, No Hesitancy Musculoskeletal : No joint pain, No Myalgias, No Joint Swelling Skin : No Skin Lesions, No rash Neuro : No Weakness, No Numbness, No Paresthesias, No Loss of Consciousness, No Dizziness, No Headache Psych : Complaining of severe anxiety, ?intrusive suicidal thoughts?, no HI Heme/Lymph: No Bruising, No Bleeding,No Lymphadenopathy Endocrine : No Polyuria, No Polydipsia, No Temperature Intolerance Constitutional: Reports as per HPI Eyes: Reports as per HPI Reports as per HPI Cardiovascular: Reports as per HPI Respiratory: Reports as per HPI Gastrointestinal: Reports as per HPI Genitourinary: Reports as per HPI Musculoskeletal: Reports as per HPI Skin/Breast: Reports as per HPI Reports as per HPI Psychiatric: Reports as per HPI Endocrine: Reports as per HPI Hematologic/Lymphatic: Reports as per HPI Allergic/Immunologic: Reports as per HPI Mental Status Exam Mental Status Exam Narrative: Pt is alert and oriented; behavior is cooperative, friendly and calm; dressed in casual attire; mood is described as good ; eye contact appropriate; Speech is normal rate, volume and prosody and not pressured; no psychomotor agita tion/retardation present; thought process is organized and goal directed; Thought content is on tx; otherwise pertinent to relevant topics and without any delusional content, paranoid ideations or grandiosity; denies SI/HI. There is no evidence of perceptual disturbance. Patients insight and judgment are fair. Diagnostics Vital Signs (24Hr): Vital Signs - 24 hr 12/05/22 10:35 12/05/22 20:40 12/06/22 07:29 Temperature 96.9 F 97.8 F Pulse Rate 88 74 73 Respiratory Rate 18 18 16 Blood Pressure 148/65 H 131/63 125/60 Pulse Oximetry 96 98 99 Oxygen Delivery Method Room Air Room Air Room Air 12/06/22 08:35 12/06/22 08:37 12/06/22 08:40 Temperature Pulse Rate 71 77 80 Respiratory Rate Blood Pressure 123/73 126/77 142/71 H Pulse Oximetry Oxygen Delivery Method BMI result Body Mass Index 23.2 Labs 12/03/22 18:08 12/05/22 08:15 Labs: Laboratory Results - last 48 hr 12/04/22 12/05/22 11:35 08:15 Sodium 126 L Potassium 4.1 Chloride 94 L Carbon Dioxide 22 Anion Gap 14 BUN 10 Creatinine 0.75 Estim Creat Clear Calc 68.0 Estimated GFR > 60 Fasting Glucose 129 H Calcium 9.8 D Total Bilirubin 0.7 AST 14 ALT 14 Alkaline Phosphatase 72 Total Protein 7.2 Albumin 4.5 Triglycerides 78 Cholesterol 181 LDL Cholesterol, Calc 104 H HDL Cholesterol 62 TSH 1.10 Medications Medications Current Medications Acetaminophen (Acetaminophen 325 Mg Tablet) 650 mg PO Q6H PRN PRN Reason: Headache/Pain Mild Scale (1-3) Last Admin: 12/05/22 05:55 Dose: 650 mg Al Hydroxide/Mg Hydroxide (Magnesium Hydrox/Alum Hydrox 30 Ml Oral.Susp) 30 ml PO Q6H PRN PRN Reason: Heartburn/Nausea Last Admin: 12/05/22 17:58 Dose: 30 ml Clonidine HCl (Clonidine Hcl 0.1 Mg Tablet) 0.1 mg PO BID PRN; Protocol PRN Reason: Anxiety Last Admin: 12/05/22 22:01 Dose: 0.1 mg Hydroxyzine HCl (Hydroxyzine Hcl 25 Mg Tablet) 25 mg PO Q6H PRN PRN Reason: Anxiety Last Admin: 12/04/22 20:25 Dose: 25 mg Loratadine (Loratadine 10 Mg Tablet) 10 mg PO DAILY [facility] Last Admin: 12/06/22 08:52 Dose: 10 mg Losartan Potassium (Losartan Potassium 25 Mg Tablet) 25 mg PO DAILY [facility]CELIA; Protocol Last Admin: 12/06/22 08:45 Dose: Not Given Magnesium Hydroxide (Milk Of Magnesia 30 Ml Oral.Susp) 30 ml PO DAILY PRN PRN Reason: Constipation Pt Own (Citalopram [ Celexa] 10 Mg Tablet ) 10 mg PO BEDTIME [facility] Last Admin: 12/05/22 20:45 Dose: 10 mg Trazodone HCl (Trazodone Hcl 50 Mg Tablet) 50 mg PO BEDTIME MRX1 PRN PRN Reason: Insomnia Allergies Allergies Allergy/AdvReac Type Severity Reaction Status Date / Time levetiracetam [From [facility]] AdvReac Intermediate Agitated Verified 12/03/22 17:35 Assessment & Plan Assessment & Plan (1) Panic disorder: Status: Acute Code(s): F41.0 - Panic disorder [episodic paroxysmal anxiety] (2) PTSD (post-traumatic stress disorder): Status: Acute Code(s): F43.10 - Post-traumatic stress disorder, unspecified Plan Patient is a 62 year old female who self presented to [facility] secondary to c/o increased anxiety that has prevented her from being able to function daily. Plan: CV 15 Minute safety checks Referral to therapist Referral to prescriber Referral to [facility] Clonidine 0.1mg PO BID PRN anxiety 12/05: Patient reports feeling a little improved from first coming in . Patient reports she is trying to attend groups but becomes anxious d/t the amount of people. She reports missing the comforts of home and am hoping to discharge soon . Patient stated, she will consider attending PHP in the future but does not want to at this time. Pt was encouraged to try clonidine for her anxiety; pt reports feeling nervous about taking medications; risks/benefits discussed. 12/06: Patient reports feeling better today. Patient stated, I'm not depressed, I'm just anxious. I slept well last night . Patient denies SI/HI/V H/AH. Patient reports she is not sure if the clonidine is helping with her anxiety. She is hoping for discharge on Friday. Continue current tx plan. Hospitalist consult placed d/t c/o of dizziness and hyponatremia. Patient educated on: diagnosis, medication risk/benefits and therapeutic strategies Informed Consent: understands Reason for continued inpatient stay Substantial Risk for: med/psych decompensation Time Spent With Patient Time: Total time managing care of this patient today _30___ minutes.
[2022-12-06 10:27] VITALS: BP 122/57; PULSE 75
[2022-12-06] MEDS: Losartan Potassium 25 MG TABLET PO (10:28)
--- NOTE | 2022-12-06 10:30 | PC.NURSE ---
Losartan given per provider
[2022-12-06 12:19] LABS: Osmolality Urine 381 mosm/kg (373-1093)
[2022-12-06 12:22] LABS: Sodium Urine Random < 20.0 mmol/L
--- NOTE | 2022-12-06 12:22 | PM.EVENT ---
Event Note Date of Service: 12/06/22 Event Note: Medical consult for patient with hyponatremia. Patient initially presented to the ED on 12/03/2022 with sodium of 128. Patient was given IVF with repeat sodium of 132. Urine osmolality after IVF low at 112 with serum sodium level of 39.0. Will recheck urine osmolality and urine sodium. Patient will be placed on fluid restriction of 1500 mL daily and will recheck sodium in the morning, as well as check cortisol levels. Patient currently on citalopram, but states was only started on this last week. Of note, she also reports being on fluid restriction earlier this year in June when she was hospitalized at [facility] for a syncopal episode. Time Spent With Patient Time: Total time managing care of this patient today ____ minutes.
--- NOTE | 2022-12-06 12:37 | HO.PM.IMCN ---
History of Present Illness Data of Consult Service Date: 12/06/22 Primary Care Provider: Unknown Physician [facility] Medical History (Updated 12/04/22 @ 15:00 by Barbara Bee NP) Anxiety Social History Household Members: None Housing: Apartment Do you presently have visiting nurse or other home services: No Alcohol intake: former Patient Tobacco Use Status: Never used Tobacco Smoked in Last 30 Days: No Use of substances other than those prescribed or required for medical reasons: No Currently Displaying Signs/Symptoms of Drug Intoxication Withdrawal: No Have you been hit, kicked, punched, or otherwise hurt by someone within the past year? If so, by whom?: No Do you feel safe in your current relationship?: No Current Relationship Is there a partner from a previous relationship who is making you feel unsafe now?: No Are you made to feel afraid or neglected: No Spiritual Healthcare Practices: RELIGIOUS Advance Directives: No Advance Directives Information Provided: No Guardian: No Do you have thoughts of harming others: None Do you have a plan to hurt others: No Plan Recently lost weight without trying: No How much weight loss: Not applicable Eating poorly because of decreased appetite: No Nutrition screen score: 0 Nutrition Risks: No Nutritional Risk Patient : No : No Poor oral hygiene: No service: No Sexual orientation: Straight/Heterosexual Meds Allergies Allergy/AdvReac Type Severity Reaction Status Date / Time levetiracetam [From [facility]] AdvReac Intermediate Agitated Verified 12/03/22 17:35 Active Medications: Current Medications Acetaminophen (Acetaminophen 325 Mg Tablet) 650 mg PO Q6H PRN PRN Reason: Headache/Pain Mild Scale (1-3) Last Admin: 12/05/22 05:55 Dose: 650 mg Al Hydroxide/Mg Hydroxide (Magnesium Hydrox/Alum Hydrox 30 Ml Oral.Susp) 30 ml PO Q6H PRN PRN Reason: Heartburn/Nausea Last Admin: 12/05/22 17:58 Dose: 30 ml Clonidine HCl (Clonidine Hcl 0.1 Mg Tablet) 0.1 mg PO BID PRN; Protocol PRN Reason: Anxiety Last Admin: 12/05/22 22:01 Dose: 0.1 mg Hydroxyzine HCl (Hydroxyzine Hcl 25 Mg Tablet) 25 mg PO Q6H PRN PRN Reason: Anxiety Last Admin: 08/23/23 20:25 Dose: 25 mg Loratadine (Loratadine 10 Mg Tablet) 10 mg PO DAILY [facility] Last Admin: 12/06/22 08:52 Dose: 10 mg Losartan Potassium (Losartan Potassium 25 Mg Tablet) 25 mg PO DAILY [facility]; Protocol Last Admin: 12/06/22 10:28 Dose: 25 mg Magnesium Hydroxide (Milk Of Magnesia 30 Ml Oral.Susp) 30 ml PO DAILY PRN PRN Reason: Constipation Pt Own (Citalopram [ Celexa] 10 Mg Tablet ) 10 mg PO BEDTIME [facility] Last Admin: 12/05/22 20:45 Dose: 10 mg Trazodone HCl (Trazodone Hcl 50 Mg Tablet) 50 mg PO BEDTIME MRX1 PRN PRN Reason: Insomnia Home Medications Medication Instructions Recorded Confirmed Last Taken Type citalopram 10 mg tablet (Celexa) 10 mg PO QPM 12/03/22 12/03/22 12/02/22 History loratadine 10 mg tablet (Claritin) 10 mg PO DAILY 12/03/22 12/03/22 12/03/22 History losartan 25 mg tablet 25 mg PO DAILY 12/03/22 12/03/22 12/03/22 History Physical Exam Vital Signs and Narrative: Vital Signs: Last Vital Signs Temp 97.8 F 12/06/22 07:29 Pulse 75 12/06/22 10:27 Resp 16 12/06/22 07:29 BP 122/57 L 12/06/22 10:27 Pulse Ox 99 12/06/22 07:29 O2 Del Method Room Air 12/06/22 07:29 BMI result Body Mass Index 23.2 Results Labs 12/03/22 18:08 12/05/22 08:15 Labs: Laboratory Results - last 24 hr 12/06/22 12/06/22 11:20 11:20 Urine Osmolality 381 Ur Random Sodium < 20.0 Assessment and Plan Time Spent With Patient Time: Total time managing care of this patient today ____ minutes.
--- NOTE | 2022-12-06 12:49 | P.EN_ITS ---
Event Note Date of Service: 12/07/22 Event Note: Patient is a 62 year female with a PMH for HTN, anxiety, and depression who is seen for medical consult for hyponatremia. Patient initially presented to the emergency department with a sodium of 128. Was given 1 L IVF with repeat sodium 132. Urine osmolality low at 112 and urine sodium 39.0, checked after IVF. Patient's sodium was 126 when rechecked 2 days later. Patient does not endorse any acute medical complaints at this time, but seems at baseline with chronic restlessness and minor fatigue since June. She does not report drinking any more water than normal, but states she makes sure she drinks enough and often has a drink of water or juice at hand, which she describes as possibly a nervous quirk . Will recheck urine osmolality and urine sodium. Patient will be placed on 1500 mL fluid restriction. Will recheck sodium and cortisol levels in the morning. Of note, patient on citalopram but states she was only started on this last week by her PCP. Would suggest holding SSRI. Also reports being placed on fluid restriction earlier this year in June when she was hospitalized at [facility] for a syncopal episode. Will continue to follow. Time Spent With Patient Time: Total time managing care of this patient today ____ minutes.
[2022-12-06 20:40] VITALS: BP 127/61; PULSE 84; RESP 16; TEMP 36.6; O2SAT 100
[2022-12-06] MEDS: clonazePAM 0.5 MG TABLET PO (20:44)
[2022-12-07 07:22] LABS: Anion Gap 13 (12-20); Blood Urea Nitrogen 13 mg/dL (9-16); Carbon Dioxide 23 mmol/L (22-29); Chloride 98 mmol/L (96-108); Creatinine Clr Calc Pharmacy 73.9; Estimated Glomerular Filt Rate > 60; Glucose Random 93 mg/dL (60-115); Potassium 4.6 mmol/L (3.3-5.1); Sodium 129 mmol/L (135-145)
[2022-12-07 08:35] VITALS: BP 113/63; PULSE 86; RESP 16; TEMP 35.8; O2SAT 100
[2022-12-07] MEDS: Losartan Potassium 25 MG TABLET PO (08:38)
[2022-12-07] MEDS: Loratadine 10 MG TABLET PO (08:39)
--- NOTE | 2022-12-07 10:46 | HO.PSYCHPN ---
Subjective Subjective Date of Service: 12/07/22 Reason For Visit: Crisis Interim History: Reviewed in team. Patient reports medications have been helpful for her. She says she is very sensitive to medications and says the [clonazepam] lingered on a little too long into the morning and wishes to decrease the dose. She is compliant with fluid restriction. She was heard asking RN whether she should have the soup since she is on a Patient reports feeling better today. Patient stated, I'm not depressed, I'm just anxious. I slept well last night . Patient denies SI/HI/VH/AH. She is hoping for discharge on Friday. Review of Systems Review of Systems Constitutional : No Weight loss, No Fever, No Chills, No Night Sweats, No Fatigue, No Malaise ENT/Mouth : No Hearing loss, No Ear Pain, No Nasal Congestion, No Sinus Pain, No Hoarseness, No sore throat, No Rhinorrhea, No Swallowing Difficulty Eyes: No Eye Pain, No Swelling, No Redness, No Foreign Body, No Discharge, No Vision Changes Cardiovascular : No Chest Pain, No SOB, No Dyspnea on Exertion, No Orthopnea, No Edema, No Palpitations Respiratory : No Cough, No Sputum, No Wheezing, No Smoke Exposure, No Dyspnea Gastrointestinal : No Nausea, No Vomiting, No Diarrhea, No Constipation, No abdominal Pain, No Hematochezia, No Melena Genitourinary : no irregular bleeding, No Dysuria, No Urinary Frequency, No Hematuria, No Urinary Incontinence, No Urgency, No Flank Pain, No Urinary Flow Changes, No Hesitancy Musculoskeletal : No joint pain, No Myalgias, No Joint Swelling Skin : No Skin Lesions, No rash Neuro : No Weakness, No Numbness, No Paresthesias, No Loss of Consciousness, No Dizziness, No Headache Psych : Complaining of severe anxiety, ?intrusive suicidal thoughts?, no HI Heme/Lymph: No Bruising, No Bleeding,No Lymphadenopathy Endocrine : No Polyuria, No Polydipsia, No Temperature Intolerance Constitutional: Reports as per HPI Eyes: Reports as per HPI Reports as per HPI Cardiovascular: Reports as per HPI Respiratory: Reports as per HPI Gastrointestinal: Reports as per HPI Musculoskeletal: Reports as per HPI Skin/Breast: Reports as per HPI Reports as per HPI Psychiatric: Reports as per HPI Endocrine: Reports as per HPI Hematologic/Lymphatic: Reports as per HPI Allergic/Immunologic: Reports as per HPI Mental Status Exam Mental Status Exam Narrative: Pt is alert and oriented; behavior is cooperative, friendly and calm; dressed in casual attire; mood is described as good ; eye contact appropriate; Speech is normal rate, volume and prosody and not pressured; no psychomotor agitation/retardation present; thought process is organized and goal directed; Thought content is on tx; otherwise pertinent to relevant topics and without any delusional content, paranoid ideations or grandiosity; denies SI/HI. There is no evidence of perceptual disturbance. Patients insight and judgment are fair. Diagnostics Vital Signs (24Hr): Vital Signs - 24 hr 12/06/22 20:40 12/07/22 08:35 Temperature 97.9 F 96.4 F L Pulse Rate 84 86 Respiratory Rate 16 16 Blood Pressure 127/61 113/63 Pulse Oximetry 100 100 Oxygen Delivery Method Room Air Room Air BMI result Body Mass Index 23.2 Labs 12/03/22 18:08 12/07/22 06:49 Labs: Laboratory Results - last 48 hr 12/06/22 12/06/22 12/07/22 11:20 11:20 06:49 Sodium 129 L Potassium 4.6 Chloride 98 Carbon Dioxide 23 Anion Gap 13 BUN 13 Creatinine 0.69 Estim Creat Clear Calc 73.9 Estimated GFR > 60 Random Glucose 93 Calcium 9.0 D Random Cortisol Urine Osmolality 381 Ur Random Sodium < 20.0 12/07/22 06:49 Sodium Potassium Chloride Carbon Dioxide Anion Gap BUN Creatinine Estim Creat Clear Calc Estimated GFR Random Glucose Calcium Random Cortisol 11.0 Urine Osmolality Ur Random Sodium Medications Medications Current Medications Acetaminophen (Acetaminophen 325 Mg Tablet) 650 mg PO Q6H PRN PRN Reason: Headache/Pain Mild Scale (1-3) Last Admin: 12/05/22 05:55 Dose: 650 mg Al Hydroxide/Mg Hydroxide (Magnesium Hydrox/Alum Hydrox 30 Ml Oral.Susp) 30 ml PO Q6H PRN PRN Reason: Heartburn/Nausea Last Admin: 12/05/22 17:58 Dose: 30 ml Clonazepam (Clonazepam 0.5 Mg Tablet) 0.5 mg PO BEDTIME ARCELIA Last Admin: 12/06/22 20:44 Dose: 0.5 mg Hydroxyzine HCl (Hydroxyzine Hcl 25 Mg Tablet) 25 mg PO Q6H PRN PRN Reason: Anxiety Last Admin: 12/04/22 20:25 Dose: 25 mg Loratadine (Loratadine 10 Mg Tablet) 10 mg PO DAILY ARCELIA Last Admin: 12/07/22 08:39 Dose: 10 mg Losartan Potassium (Losartan Potassium 25 Mg Tablet) 25 mg PO DAILY ARCELIA; Protocol Last Admin: 12/07/22 08:38 Dose: 25 mg Magnesium Hydroxide (Milk Of Magnesia 30 Ml Oral.Susp) 30 ml PO DAILY PRN PRN Reason: Constipation Pt Own (Citalopram [ Celexa] 10 Mg Tablet ) 10 mg PO BEDTIME ARCELIA Last Admin: 12/06/22 20:44 Dose: 10 mg Allergies Allergies Allergy/AdvReac Type Severity Reaction Status Date / Time levetiracetam [From [facility] [place]] AdvReac Intermediate Agitated Verified 12/03/22 17:35 Assessment & Plan Assessment & Plan (1) Panic disorder: Status: Acute Code(s): F41.0 - Panic disorder [episodic paroxysmal anxiety] (2) PTSD (post-traumatic stress disorder): Status: Acute Code(s): F43.10 - Post-traumatic stress disorder, unspecified Plan Patient is a 62 year old female who self presented [place] [facility] secondary to c/o increased anxiety that has prevented her from being able to function daily. Plan: CV 15 Minute safety checks Referral to therapist Referral to prescriber Referral to [facility] Clonidine 0.1mg PO BID PRN anxiety 12/05: Patient reports feeling a little improved from first coming in . Patient reports she is trying to attend groups but becomes anxious d/t the amount of people. She reports missing the comforts of home and am hoping to discharge soon . Patient stated, she will consider attending PHP in the future but does not want to at this time. Pt was encouraged to try clonidine for her anxiety; pt reports feeling nervous about taking medications; risks/benefits discussed. 12/06: Patient reports feeling better today. Patient stated, I'm not depressed, I'm just anxious. I slept well last night . Patient denies SI/HI/VH/AH. Patient reports she is not sure if the clonidine is helping with her anxiety. She is hoping for discharge on Friday. Continue current tx plan. Hospitalist consult placed d/t c/o of dizziness and hyponatremia. 12/07: Lower Clonazepam to 0.25 mg HS and continue other treatment unchanged. Reason for continued inpatient stay Substantial Risk for: inability to function and rapid decompensation Time Spent With Patient Time: Total time managing care of this patient today ____ minutes.
[2022-12-07 19:51] VITALS: BP 134/63; PULSE 76; RESP 16; TEMP 36.3; O2SAT 98
[2022-12-07] MEDS: clonazePAM 0.5 MG TABLET 0.25 MG PO (21:17)
[2022-12-08 08:00] VITALS: BP 112/66; PULSE 84; RESP 18; TEMP 36.6; O2SAT 99
[2022-12-08] MEDS: Loratadine 10 MG TABLET PO (09:43)
[2022-12-08] MEDS: Losartan Potassium 25 MG TABLET PO (09:43)
--- NOTE | 2022-12-08 13:57 | P.PNPSI_ITS ---
Subjective Subjective Date of Service: 12/08/22 Reason For Visit: Crisis Interim History: Reviewed in team. Doing well. Says she has mixed feelings about possible discharge home tomorrow. IM DCed fluid restriction. Will recheck Na in AM. Patient reports medications have been helpful for her. Her Clonazepam was lowered to 0.25mg. Tolerating that well. Patient denies depression. Patient denies SI/HI/VH/AH. Medicine suggested DC Celexa. Patient Na was low on admission. She had just started Celexa on 11/30. Review of Systems Review of Systems Constitutional : No Weight loss, No Fever, No Chills, No Night Sweats, No Fatigue, No Malaise ENT/Mouth : No Hearing loss, No Ear Pain, No Nasal Congestion, No Sinus Pain, No Hoarseness, No sore throat, No Rhinorrhea, No Swallowing Difficulty Eyes: No Eye Pain, No Swelling, No Redness, No Foreign Body, No Discharge, No Vision Changes Cardiovascular : No Chest Pain, No SOB, No Dyspnea on Exertion, No Orthopnea, No Edema, No Palpitations Respiratory : No Cough, No Sputum, No Wheezing, No Smoke Exposure, No Dyspnea Gastrointestinal : No Nausea, No Vomiting, No Diarrhea, No Constipation, No abdominal Pain, No Hematochezia, No Melena Genitourinary : no irregular bleeding, No Dysuria, No Urinary Frequency, No Hematuria, No Urinary Incontinence, No Urgency, No Flank Pain, No Urinary Flow Changes, No Hesitancy Musculoskeletal : No joint pain, No Myalgias, No Joint Swelling Skin : No Skin Lesions, No rash Neuro : No Weakness, No Numbness, No Paresthesias, No Loss of Consciousness, No Dizziness, No Headache Psych : Complaining of severe anxiety, ?intrusive suicidal thoughts?, no HI Heme/Lymph: No Bruising, No Bleeding,No Lymphadenopathy Endocrine : No Polyuria, No Polydipsia, No Temperature Intolerance Constitutional: Reports as per HPI Eyes: Reports as per HPI Reports as per HPI Cardiovascular: Reports as per HPI Respiratory: Reports as per HPI Gastrointestinal: Reports as per HPI Musculoskeletal: Reports as per HPI Skin/Breast: Reports as per HPI Reports as per HPI Psychiatric: Reports as per HPI Endocrine: Reports as per HPI Hematologic/Lymphatic: Reports as per HPI Allergic/Immunologic: Reports as per HPI Mental Status Exam Mental Status Exam Narrative: Pt is alert and oriented; behavior is cooperative, friendly and calm; dressed in casual attire; mood is described as good ; eye contact appropriate; Speech is normal rate, volume and prosody and not pressured; no psychomotor agitation/retardation present; thought process is organized and goal directed; Thought content is on tx; otherwise pertinent to relevant topics and without any delusional content, paranoid ideations or grandiosity; denies SI/HI. There is no evidence of perceptual disturbance. Patients insight and judgment are fair. Diagnostics Vital Signs (24Hr): Vital Signs - 24 hr 12/07/22 19:51 12/08/22 08:00 Temperature 97.4 F 97.9 F Pulse Rate 76 84 Respiratory Rate 16 18 Blood Pressure 134/63 112/66 Pulse Oximetry 98 99 Oxygen Delivery Method Room Air Room Air BMI result Body Mass Index 23.2 Labs 12/03/22 18:08 12/07/22 06:49 Labs: Laboratory Results - last 48 hr 12/07/22 12/07/22 06:49 06:49 Sodium 129 L Potassium 4.6 Chloride 98 Carbon Dioxide 23 Anion Gap 13 BUN 13 Creatinine 0.69 Estim Creat Clear Calc 73.9 Estimated GFR > 60 Random Glucose 93 Calcium 9.0 D Random Cortisol 11.0 Medications Medications Current Medications Acetaminophen (Acetaminophen 325 Mg Tablet) 650 mg PO Q6H PRN PRN Reason: Headache/Pain Mild Scale (1-3) Last Admin: 12/05/22 05:55 Dose: 650 mg Al Hydroxide/Mg Hydroxide (Magnesium Hydrox/Alum Hydrox 30 Ml Oral.Susp) 30 ml PO Q6H PRN PRN Reason: Heartburn/Nausea Last Admin: 12/05/22 17:58 Dose: 30 ml Clonazepam (Clonazepam 0.5 Mg Tablet) 0.25 mg PO BEDTIME ARCELIA Last Admin: 12/07/22 21:17 Dose: 0.25 mg Hydroxyzine HCl (Hydroxyzine Hcl 25 Mg Tablet) 25 mg PO Q6H PRN PRN Reason: Anxiety Last Admin: 12/04/22 20:25 Dose: 25 mg Loratadine (Loratadine 10 Mg Tablet) 10 mg PO DAILY ARCELIA Last Admin: 12/08/22 09:43 Dose: 10 mg Losartan Potassium (Losartan Potassium 25 Mg Tablet) 25 mg PO DAILY ARCELIA; Protocol Last Admin: 12/08/22 09:43 Dose: 25 mg Magnesium Hydroxide (Milk Of Magnesia 30 Ml Oral.Susp) 30 ml PO DAILY PRN PRN Reason: Constipation Pt Own (Citalopram [ Celexa] 10 Mg Tablet ) 10 mg PO BEDTIME ARCELIA Last Admin: 12/07/22 21:18 Dose: 10 mg Allergies Allergies Allergy/AdvReac Type Severity Reaction Status Date / Time levetiracetam [From [facility]] AdvReac Intermediate Agitated Verified 12/03/22 17:35 Assessment & Plan Assessment & Plan (1) Panic disorder: Status: Acute Code(s): F41.0 - Panic disorder [episodic paroxysmal anxiety] (2) PTSD (post-traumatic stress disorder): Status: Acute Code(s): F43.10 - Post-traumatic stress disorder, unspecified Plan Patient is a 62 year old female who self presented to [facility] secondary to c/o increased anxiety that has prevented her from being able to function daily. Plan: CV 15 Minute safety checks Referral to therapist Referral to prescriber Referral to PHP Clonidine 0.1mg PO BID PRN anxiety 12/05: Patient reports feeling a little improved from first coming in . Patient reports she is trying to attend groups but becomes anxious d/t the amount of people. She reports missing the comforts of home and am hoping to discharge soon . Patient stated, she will consider attending PHP in the future but does not want to at this time. Pt was encouraged to try clonidine for her anxiety; pt reports feeling nervous about taking medications; risks/benefits discussed. 12/06: Patient reports feeling better today. Patient stated, I'm not depressed, I'm just anxious. I slept well last night . Patient denies SI/HI/VH/AH. Patient reports she is not sure if the clonidine is helping with her anxiety. She is hoping for discharge on Friday. Continue current tx plan. Hospitalist consult placed d/t c/o of dizziness and hyponatremia. 12/07: Lower Clonazepam to 0.25 mg HS and continue other treatment unchanged. 12/08: Continue current plan. Will repeat Na in AM. weigh risk of mild hyponatremia vs benefit of Celexa for patient's incapacitating anxiety. Reason for continued inpatient stay Substantial Risk for: inability to function and rapid decompensation Time Spent With Patient Time: Total time managing care of this patient today ____ minutes.
[2022-12-08] MEDS: Acetaminophen 325 MG TABLET 650 MG PO (14:46)
[2022-12-08] MEDS: hydrOXYzine HCL 25 MG TABLET PO (17:27)
[2022-12-08 21:50] VITALS: BP 140/69; PULSE 69; RESP 18; TEMP 36.2; O2SAT 98
[2022-12-08] MEDS: clonazePAM 0.5 MG TABLET 0.25 MG PO (21:57)
[2022-12-09 08:00] VITALS: BP 121/64; PULSE 84; RESP 18; TEMP 36.6; O2SAT 100
[2022-12-09] MEDS: Losartan Potassium 25 MG TABLET PO (08:58)
[2022-12-09] MEDS: Loratadine 10 MG TABLET PO (08:58)
[2022-12-09 09:08] LABS: Anion Gap 10 (12-20); Blood Urea Nitrogen 12 mg/dL (9-16); Calcium 9.9 mg/dL (8.4-10.2); Carbon Dioxide 27 mmol/L (22-29); Chloride 99 mmol/L (96-108); Creatinine Clr Calc Pharmacy 71.8; Estimated Glomerular Filt Rate > 60; Glucose Random 96 mg/dL (60-115); Potassium 4.4 mmol/L (3.3-5.1); Sodium 132 mmol/L (135-145)
[2022-12-09] MEDS: Acetaminophen 325 MG TABLET 650 MG PO (10:25)
--- NOTE | 2022-12-09 11:15 | P.DS_ITS ---
DS: Providers Provider Date of Service: 12/09/22 Date of admission: 12/04/22 11:11 Date of discharge: 12/09/22 Primary care physician: Unknown Physician Admitting clinician: Barbara Bee Attending physician on admission: Ned Borges Consults: 12/06/22 10:20 Consult to Hospitalist Routine Comment: Consulting Provider: Hospitalist Reason For Exam: low sodium, c/o dizziness and headache Attending physician on discharge: Ned Borges Discharging clinician: Barbara Bee DS: Diagnosis Discharge Diagnosis (1) Panic disorder: Status: Acute (2) PTSD (post-traumatic stress disorder): Status: Acute DS: Medications Discharge Medications Home Medications: Home Medications Medication Instructions Recorded Confirmed citalopram 10 mg tablet (Celexa) 10 mg PO QPM 12/03/22 12/03/22 loratadine 10 mg tablet (Claritin) 10 mg PO DAILY 12/03/22 12/03/22 losartan 25 mg tablet 25 mg PO DAILY 12/03/22 12/03/22 Mental Status Exam Mental Status Exam Narrative: Pt is alert and oriented; behavior is cooperative, friendly and calm; dressed in casual attire; mood is described as good ; eye contact appropriate; Speech is normal rate, volume and prosody and not pressured; no psychomotor agitation/retardation present; thought process is organized and goal directed; Thought content is on tx; otherwise pertinent to relevant topics and without any delusional content, paranoid ideations or grandiosity; denies SI/HI. There is no evidence of perceptual disturbance. Patients insight and judgment are fair. Data Data Completed and Pending Completed studies during hospitalization [Text1]: 12/03/22 12/03/22 12/03/22 17:57 17:57 18:08 WBC 6.4 RBC 3.92 L Hgb 12.2 Hct 33.8 L MCV 86.2 MCH 31.1 MCHC 36.1 H RDW 11.9 Plt Count 355 MPV 8.1 L Immature Gran % (Auto) 0.3 Neut % (Auto) 55.6 Lymph % (Auto) 34.4 [place] % (Auto) 8.6 Eos % (Auto) 0.6 Baso % (Auto) 0.5 Lymph # (Auto) 2.2 [place] # (Auto) 0.6 Eos # (Auto) 0.0 Baso # (Auto) 0.0 Abs Immat Gran (auto) 0.02 Absolute Neuts (auto) 3.6 Absolute Nucleated RBC 0.000 Nucleated RBC % (auto) 0.0 Sodium Potassium Chloride Carbon Dioxide Anion Gap BUN Creatinine Estim Creat Clear Calc Estimated GFR Random Glucose Fasting Glucose Calcium Total Bilirubin Direct Bilirubin AST ALT Alkaline Phosphatase Total Protein Albumin Triglycerides Cholesterol LDL Cholesterol, Calc HDL Cholesterol TSH Random Cortisol Urine Color Yellow Urine Appearance Clear Urine pH 5.5 Ur Specific [place] 1.010 Urine Protein Negative Urine Glucose (UA) Negative Urine Ketones Negative Urine Blood Negative Urine Nitrite Negative Ur Leukocyte Esterase Negative Urine Osmolality Ur Random Sodium Urine Opiates Screen Not Detected Urine Fentanyl Screen Not Detected Ur Barbiturates Screen Not Detected Ur Phencyclidine Scrn Not Detected Ur Amphetamines Screen Not Detected U Benzodiazepines Scrn Not Detected Urine Cocaine Screen Not Detected U Marijuana (THC) Screen Not Detected Ethyl Alcohol COVID-19 ([facility]) COVID-[employer] 12/03/22 12/03/22 12/03/22 18:08 18:08 18:08 WBC RBC Hgb Hct MCV MCH MCHC RDW Plt Count MPV Immature Gran % (Auto) Neut % (Auto) Lymph % (Auto) [place] % (Auto) Eos % (Auto) Baso % (Auto) Lymph # (Auto) [place] # (Auto) Eos # (Auto) Baso # (Auto) Abs Immat Gran (auto) Absolute Neuts (auto) Absolute Nucleated RBC Nucleated RBC % (auto) Sodium 128 L Potassium 3.6 Chloride 95 L Carbon Dioxide 25 Anion Gap 12 BUN 11 Creatinine 0.71 Estim Creat Clear Calc 71.8 Estimated GFR > 60 Random Glucose 94 Fasting Glucose Calcium 9.9 Total Bilirubin 0.6 Direct Bilirubin 0.2 AST 13 ALT 15 Alkaline Phosphatase 74 Total Protein 7.2 Albumin 4.7 Triglycerides Cholesterol LDL Cholesterol, Calc HDL Cholesterol TSH Random Cortisol Urine Color Urine Appearance Urine pH Ur Specific [place] Urine Protein Urine Glucose (UA) Urine Ketones Urine Blood Urine Nitrite Ur Leukocyte Esterase Urine Osmolality Ur Random Sodium Urine Opiates Screen Urine Fentanyl Screen Ur Barbiturates Screen Ur Phencyclidine Scrn Ur Amphetamines Screen U Benzodiazepines Scrn Urine Cocaine Screen U Marijuana (THC) Screen Ethyl Alcohol < 10 COVID-19 ([facility]) Negative COVID-19 [employer] See Note 12/03/22 12/03/22 12/03/22 23:01 23:49 23:49 WBC RBC Hgb Hct MCV MCH MCHC RDW Plt Count MPV Immature Gran % (Auto) Neut % (Auto) Lymph % (Auto) [place] % (Auto) Eos % (Auto) Baso % (Auto) Lymph # (Auto) [place] # (Auto) Eos # (Auto) Baso # (Auto) Abs Immat Gran (auto) Absolute Neuts (auto) Absolute Nucleated RBC Nucleated RBC % (auto) Sodium 132 L Potassium 3.7 Chloride 100 Carbon Dioxide 25 Anion Gap 11 L BUN 10 Creatinine 0.65 Estim Creat Clear Calc 78.5 Estimated GFR > 60 Random Glucose 93 Fasting Glucose Calcium 8.7 D Total Bilirubin Direct Bilirubin AST ALT Alkaline Phosphatase Total Protein Albumin Triglycerides Cholesterol LDL Cholesterol, Calc HDL Cholesterol TSH Random Cortisol Urine Color Urine Appearance Urine pH Ur Specific [place] Urine Protein Urine Glucose (UA) Urine Ketones Urine Blood Urine Nitrite Ur Leukocyte Esterase Urine Osmolality 112 L Ur Random Sodium 39.0 Urine Opiates Screen Urine Fentanyl Screen Ur Barbiturates Screen Ur Phencyclidine Scrn Ur Amphetamines Screen U Benzodiazepines Scrn Urine Cocaine Screen U Marijuana (THC) Screen Ethyl Alcohol COVID-19 ([facility]) COVID-19 Clin Com 12/04/22 12/05/22 12/06/22 11:35 08:15 11:20 WBC RBC Hgb Hct MCV MCH MCHC RDW Plt Count MPV Immature Gran % (Auto) Neut % (Auto) Lymph % (Auto) [place] % (Auto) Eos % (Auto) Baso % (Auto) Lymph # (Auto) [place] # (Auto) Eos # (Auto) Baso # (Auto) Abs Immat Gran (auto) Absolute Neuts (auto) Absolute Nucleated RBC Nucleated RBC % (auto) Sodium 126 L Potassium 4.1 Chloride 94 L Carbon Dioxide 22 Anion Gap 14 BUN 10 Creatinine 0.75 Estim Creat Clear Calc 68.0 Estimated GFR > 60 Random Glucose Fasting Glucose 129 H Calcium 9.8 D Total Bilirubin 0.7 Direct Bilirubin AST 14 ALT 14 Alkaline Phosphatase 72 Total Protein 7.2 Albumin 4.5 Triglycerides 78 Cholesterol 181 LDL Cholesterol, Calc 104 H HDL Cholesterol 62 TSH 1.10 Random Cortisol Urine Color Urine Appearance Urine pH Ur Specific [place] Urine Protein Urine Glucose (UA) Urine Ketones Urine Blood Urine Nitrite Ur Leukocyte Esterase Urine Osmolality 381 Ur Random Sodium Urine Opiates Screen Urine Fentanyl Screen Ur Barbiturates Screen Ur Phencyclidine Scrn Ur Amphetamines Screen U Benzodiazepines Scrn Urine Cocaine Screen U Marijuana (THC) Screen Ethyl Alcohol COVID-19 ([facility]) COVID-19 [employer] 12/06/22 12/07/22 12/07/22 11:20 06:49 06:49 WBC RBC Hgb Hct MCV MCH MCHC RDW Plt Count MPV Immature Gran % (Auto) Neut % (Auto) Lymph % (Auto) [place] % (Auto) Eos % (Auto) Baso % (Auto) Lymph # (Auto) [place] # (Auto) Eos # (Auto) Baso # (Auto) Abs Immat Gran (auto) Absolute Neuts (auto) Absolute Nucleated RBC Nucleated RBC % (auto) Sodium 129 L Potassium 4.6 Chloride 98 Carbon Dioxide 23 Anion Gap 13 BUN 13 Creatinine 0.69 Estim Creat Clear Calc 73.9 Estimated GFR > 60 Random Glucose 93 Fasting Glucose Calcium 9.0 D Total Bilirubin Direct Bilirubin AST ALT Alkaline Phosphatase Total Protein Albumin Triglycerides Cholesterol LDL Cholesterol, Calc HDL Cholesterol TSH Random Cortisol 11.0 Urine Color Urine Appearance Urine pH Ur Specific [place] Urine Protein Urine Glucose (UA) Urine Ketones Urine Blood Urine Nitrite Ur Leukocyte Esterase Urine Osmolality Ur Random Sodium < 20.0 Urine Opiates Screen Urine Fentanyl Screen Ur Barbiturates Screen Ur Phencyclidine Scrn Ur Amphetamines Screen U Benzodiazepines Scrn Urine Cocaine Screen U Marijuana (THC) Screen Ethyl Alcohol COVID-19 ([facility]) COVID-19 [employer] 12/09/22 08:33 WBC RBC Hgb Hct MCV MCH MCHC RDW Plt Count MPV Immature Gran % (Auto) Neut % (Auto) Lymph % (Auto) [place] % (Auto) Eos % (Auto) Baso % (Auto) Lymph # (Auto) [place] # (Auto) Eos # (Auto) Baso # (Auto) Abs Immat Gran (auto) Absolute Neuts (auto) Absolute Nucleated RBC Nucleated RBC % (auto) Sodium 132 L Potassium 4.4 Chloride 99 Carbon Dioxide 27 Anion Gap 10 L BUN 12 Creatinine 0.71 Estim Creat Clear Calc 71.8 Estimated GFR > 60 Random Glucose 96 Fasting Glucose Calcium 9.9 D Total Bilirubin Direct Bilirubin AST ALT Alkaline Phosphatase Total Protein Albumin Triglycerides Cholesterol LDL Cholesterol, Calc HDL Cholesterol TSH Random Cortisol Urine Color Urine Appearance Urine pH Ur Specific [place] Urine Protein Urine Glucose (UA) Urine Ketones Urine Blood Urine Nitrite Ur Leukocyte Esterase Urine Osmolality Ur Random Sodium Urine Opiates Screen Urine Fentanyl Screen Ur Barbiturates Screen Ur Phencyclidine Scrn Ur Amphetamines Screen U Benzodiazepines Scrn Urine Cocaine Screen U Marijuana (THC) Screen Ethyl Alcohol COVID-19 ([facility]) COVID-19 Clin Com DS: Summary Hospital Course Hospital Course: Patient is a 62 year old female who self presented to [facility] secondary to c/o increased anxiety that has prevented her from being able to function daily. Per crisis report, pt is fearful something will happen such as crashing her car; she reports racing thoughts, panic attacks, trouble concentrating, lack of sleep and lack of appetite. Her symptoms began in August 2022 after falling in the grocery store. She just starting taking Citalopram 10mg PO Bedtime on Friday11/30/2022. During admission assessment, patient presents as calm, cooperative and friendly. Patient reports she has always been an independent woman but then I fell at the grocery store and I started worrying about who's going to take care of me . Patient reports she identifies herself as a worrier and know I have to be nicer to myself . Patient does not want to be placed on any benzodiazepines because she doesn't want to take anything addicting . Patient reports she would like a referral to a therapist and outpatient prescriber. T/W discussed the benefits of attending PHP; pt reports she will consider attending PHP but is worried about transportation. Pt denies any substance use. Pt denies SI /HI/VH/AH. Patient reports feeling a little improved from first coming in . Patient reports she is trying to attend groups but becomes anxious d/t the amount of people. She reports missing the comforts of home and am hoping to discharge soon . Patient stated, she will consider attending PHP in the future but does not want to at this time. Pt was encouraged to try clonidine for her anxiety; pt reports feeling nervous about taking medications; risks/benefits discussed. Patient reports feeling better today. Patient stated, I'm not depressed, I'm just anxious. I slept well last night . Patient reports she is not sure if the clonidine is helping with her anxiety. She is hoping for discharge on Friday. Hospitalist consult placed d/t c/o of dizziness and hyponatremia. Pt was placed on a fluid restriction. Sodium 132 on 12/09/2022. Lowered Clonazepam to 0.25 mg PO bedtime d/t patients request. Patient is looking forward to discharging home today. She plans on following up with outpatient providers; she was given educational packet on panic disorder and therapy. Pt denies SI/HI/VH/AH at this time. Time spent discussing smoking cessation with patient: 3 to 10 minutes Status at Discharge Cognitive/behavioral status at discharge: Patient was interviewed prior to discharge and found to be fully oriented and without any SI or HI. Patient has insight and demonstrates good judgment in terms of wanting to pursue treatment. Patient is not in imminent risk of harm to self or others and has a safety plan that includes presenting to the closest ER or calling 911 if feeling unsafe. Patient has been observed closely by nursing and unit staff throughout admission; patient has not engaged in any behaviors that suggest dangerousness to self or others and has demonstrated appropriate behaviors and impulse control. Functional status at discharge: independent ambulation Overall status at discharge: patient is back to baseline Time Spent with Patient Time attestation: Total time managing care of this patient today _30___ minutes. Time spent: Less than 30 minutes Discharge Plan Discharge Anticipated Discharge Date/Time: 12/09/22 13:30 Patient Disposition: Home, Self-Care Discharge Diagnosis: Panic D/O, PTSD Referrals: THERAPY INTAKE [Other] - 12/11/22 8:45 am (IN OFFICE APPOINTMENT WITH LIVIA العلي) [facility] [Other] - 01/08/23 10:00 am (IN OFFICE APPOINTMENT) [facility] [Other] - 02/06/23 10:30 am (IN OFFICE APPOINTMENT) [facility] [Provider Group] - 1 Week Physician,Virginie Vital [Primary Care Provider] - 1 Week (PCP contacted. They will contact patient with follow up appt.) Discharge Medications: New clonazepam 0.25 mg tablet,disintegrating 0.25 mg PO BEDTIME 30 Days Qty: 30 0RF Rx Instructions: administer 30 minutes before bedtime Continued losartan 25 mg tablet 25 mg PO DAILY loratadine [Claritin] 10 mg Tablet 10 mg PO DAILY Changed citalopram [Celexa] 10 mg Tablet 10 mg PO BEDTIME 30 Days Qty: 30 0RF Discharge Orders: Discharge Order (Routine); Ordered 12/09/22 Ordered By: Barbara Bee Diet: Regular diet Activity on Discharge: As tolerated Stand Alone Forms: Patient Portal Discharge page, Community Support Care Plan Goals: Maintain mood and safe behaviors Take medications as prescribed Practice coping skills Continue with outpatient providers and reach out to them as needed Health Concerns: Mood stability and behaviors Plan of Treatment: Follow up with your PCP, psychiatric provider and other outpatient providers regarding above concerns Take medications as prescribed Assessment: Patient was interviewed prior to discharge and found to be fully oriented and without any SI or HI. Patient has insight and demonstrates good judgment in terms of wanting to pursue treatment. Patient is not in imminent risk of harm to self or others and has a safety plan that includes presenting to the closest ER or calling 911 if feeling unsafe. Patient has been observed closely by nursing and unit staff throughout admission; patient has not engaged in any behaviors that suggest dangerousness to self or others and has demonstrated appropriate behaviors and impulse control.
--- NOTE | 2022-12-09 14:44 | PC.NURSE ---
Pt discharged to home, denies SI/HI/AH/VH at this time. Reviewed discharge instructions , medications, and appointments. Pt verbalized understanding.
== END 2022-12-09 13:35 | disposition home or self-care (01) | DRG 756 ==
LOC: HO.ED 17:51 → HO.PADLT16 12-04 11:30
PROVIDERS: Physician Assistant Medical; Psychiatry & Neurology Psychiatry; Student in an Organized Health Care Education/Training Program; Admitting Provider Registered Nurse; Emergency Provider Emergency Medicine; Responsible Provider Registered Nurse; Visit Provider Psychiatry & Neurology Psychiatry
DX: F41.0 Panic disorder [episodic paroxysmal anxiety] (principal); E87.1 Hypo-osmolality and hyponatremia; F43.10 Post-traumatic stress disorder, unspecified; Z20.822 Contact with and (suspected) exposure to COVID-19; Z79.899 Other long term (current) drug therapy
CPT/HCPCS: 36415; 80048; 80053; 80061; 80076; 80307; 81003; 82533; 83935; 84300; 84443; 85025; 87635; 93005; 99285; S9485

== ENCOUNTER → 2022-12-04 11:11 | Outpatient (BNV) | payer BC, SELFPAY | PROVIDERS: Admitting Provider Registered Nurse; Emergency Provider Emergency Medicine; Visit Provider Psychiatry & Neurology Psychiatry | DX: F41.0 Panic disorder [episodic paroxysmal anxiety] (principal); F43.11 Post-traumatic stress disorder, acute | CPT/HCPCS: 90792; 99231; 99232; 99238 ==